=== PATIENT | male | born 1950 | race Caucasian/White ===

== ENCOUNTER 2016-11-09 11:45 | Emergency (ER) | payer MEDICARE, OTHER ==
[2016-11-09] MEDS ORDERED: DIPH,PERTUS(ACELL)TETVAC-LF 0.5 ML VIAL IM ONE (11:46)
[2016-11-09] MEDS ORDERED: fentaNYL (PF) 50 MCG/ML 5 ML AMP IVP STA (12:08)
[2016-11-09] MEDS: fentaNYL (PF) 50 MCG/ML 2 ML AMP IVP STA ×2 (12:12→13:49)
[2016-11-09 12:17] LABS: Glucose,Whole Blood 107 mg/dL (75-99)
--- NOTE | 2016-11-09 12:17 | XR ---
EXAMINATION TYPE: XR Femur RT 1 View DATE OF EXAM: 11/09/2016 CLINICAL HISTORY: Pain TECHNIQUE: One view submitted COMPARISON: None FINDINGS: Exam limited by overlying artifact. There is displaced proximal femoral fracture with comm inuted fragments. Mild diffuse osteopenia. IMPRESSION: 1. Displaced comminuted proximal femoral fracture.
--- NOTE | 2016-11-09 12:19 | XR ---
EXAMINATION TYPE: XR chest 1V portable DATE OF EXAM: 11/09/2016 HISTORY: Trauma, pain. COMPARISON: 06/11/2014 TECHNIQUE: Single view of the chest is submitted. Underlying backboard limits evaluation. FINDINGS: There is fracture of left rib #2. Suspected deformities of left ribs 4 through 6. Left apical lucency could reflect small pneumothorax. There is mediastinal widening likely related to the patient's supi ne positioning. Lung volumes are diminished. There is lucency traversing the scapular body. Additiona l fractures difficult to exclude this region. IMPRESSION: 1. Recommend CT of the chest for possible small left pneumothorax with multiple left-sided rib fract ures. See above.
--- NOTE | 2016-11-09 12:19 | XR ---
EXAMINATION TYPE: XR shoulder limited LT DATE OF EXAM: 11/09/2016 COMPARISON: NONE HISTORY: Pain TECHNIQUE: One view submitted FINDINGS: Arthropathy of the AC joint is seen however there is suspicion for a lucency extending thro ugh the lateral margin of the acromium. There also is atypical morphology of the body of the scapula. Assessment of the shoulders limited due to internal rotation. Also suspect slight cortical step-off involving the left second rib laterally. IMPRESSION: 1. Question scapular fracture recommend CT of the left shoulder. 2. Findings consistent with a fracture involving the left lateral second rib.
--- NOTE | 2016-11-09 12:22 | XR ---
EXAMINATION TYPE: XR pelvis AP view DATE OF EXAM: 11/09/2016 COMPARISON: NONE HISTORY: Pain There is a comminuted fracture of the proximal femur and oblique orientation. Diffuse osteopenia note d. Pubic rami appear intact. Hypertrophic change lower lumbar spine. IMPRESSION: 1. Comminuted fracture proximal right femur.
[2016-11-09 12:30] LABS: Basophils % (A) 1 %; CH 31.1; CHCM 33.1; Eosinophils # (A) 0.3 k/uL (0-0.7); Eosinophils % (A) 3 %; HCT 40.4 % (39.0-53.0); HDW 2.15; HGB 13.4 gm/dL (13.0-17.5); Luc # (Auto) 0.16; Luc % (Auto) 2; Lymphocytes # (A) 1.2 k/uL (1.0-4.8); Lymphocytes % (A) 14 %; MCH 31.3 pg (25.0-35.0); MCHC 33.2 g/dL (31.0-37.0); MCV 94.4 fL (80.0-100.0); Mean Platelet Volume 6.8; Monocytes # (A) 0.4 k/uL (0-1.0); Monocytes % (A) 5 %; Neutrophils # (A) 6.2 k/uL (1.3-7.7); Neutrophils % (A) 75 %; RBC 4.28 m/uL (4.30-5.90); RDW 12.8 % (11.5-15.5); WBC 8.2 k/uL (3.8-10.6); WBC (Perox) 8.24
[2016-11-09 12:45] LABS: ALT 54 U/L (21-72); AST 43 U/L (17-59); Alcohol <10 mg/dL; Alkaline Phosphatase 69 U/L (38-126); Anion Gap 6 mmol/L; Blood Urea Nitrogen 16 mg/dL (9-20); Calcium 9.2 mg/dL (8.4-10.2); Carbon Dioxide 28 mmol/L (22-30); Chloride 105 mmol/L (98-107); Glucose 106 mg/dL (74-99); Non-African American GFR(MDRD) >60 (>60 ml/min/1.73 sqM); Potassium 5.2 mmol/L (3.5-5.1); Sodium 139 mmol/L (137-145); Total Bilirubin 0.3 mg/dL (0.2-1.3); Total Protein 6.3 g/dL (6.3-8.2)
[2016-11-09] MEDS ORDERED: RX INFO: IV CONTRAST WAS GIVEN 1 EACH MISC MISCELLANE PRN (12:48)
[2016-11-09 12:55] LABS: Prothrombin Time 9.9 sec (9.0-12.0)
--- NOTE | 2016-11-09 13:12 | CT ---
EXAMINATION TYPE: CT brain sarita solano DATE OF EXAM: 11/09/2016 COMPARISON: NONE HISTORY: Patient poor historian. Patient fell off of horse today. Patient has multiple facial abras ions. CT DLP: 1931 mGycm. Automated Exposure Control for Dose Reduction was Utilized. TECHNIQUE: CT scan of the head and cervical spine are performed without contrast. FINDINGS: There is a type I rotatory atlantoaxial subluxation with rightward rotation of C1 with respect to C2 with no widening of the atlantodental interval. The anterior arch of C1 approximates the dens. There is a maintained articulation of C1 with the occiput bilaterally. The lateral masses of C1 do not exte nd over the lateral masses of C2 on coronal image. Facets maintain normal alignment. Vertebral body also maintains alignment other than the afferent men tioned rotatory subluxation. No significant prevertebral soft tissue swelling is noted. Multilevel de generative changes of the cervical spine are most pronounced at C4-C5. There is no acute intracranial hemorrhage, mass effect, or midline shift identified. The ventricles and sulci are within normal li mits in size. The globes are intact and the visualized sinuses are clear. There is a left parietal s calp hematoma measuring approximately 3.7 cm in length and 4.9 mm in thickness. No intracranial hemor rhage is seen deep to this. No calvarial fracture is associated. IMPRESSION: 1. Type I rotatory atlantoaxial subluxation with no widening of the atlantodental interval. No acute fracture. C1 maintains normal alignment with the occiput. 2. No acute intracranial hemorrhage, mass effect, or midline shift is seen. 3. Left parietal scalp hematoma measuring up to 4.9 cm in greatest thickness. 4. Multilevel degenerative disc disease of the cervical spine. Findings were relayed to the ordering ER physician by Dr. Humphrey on 11/09/2016 at 1310.
[2016-11-09 13:45] LABS: Partial Thromboplastin Time 21.5 sec (22.0-30.0)
--- NOTE | 2016-11-09 14:25 | CT ---
EXAMINATION TYPE: CT ChestAbdPelvis w con DATE OF EXAM: 11/09/2016 COMPARISON: CT brain C-spine dated 11/09/2016. HISTORY: Patient poor historian. Patient fell off of horse today. CT DLP: 1362 mGycm. Automated Exposure Control for Dose Reduction was Utilized. CONTRAST: CT scan of the thorax, abdomen and pelvis is performed with IV Contrast, patient injected with 100 mL of Omnipaque 300. FINDINGS: LUNGS: The lungs demonstrate minimal bibasilar subsegmental atelectasis, there is no concerning paren chymal mass or nodule identified. There is no pleural effusion or pneumothorax seen. The tracheobr onchial tree is patent. No pulmonary contusion is seen. MEDIASTINUM: There are no greater than 1 cm hilar or mediastinal lymph nodes. No pericardial effusi on is seen. No evidence of pulmonary embolus. Ascending aorta is prominent in size measuring 3.8 cm but does not fit criteria for aneurysmal dilatation. No evidence of dissection. LIVER/GB: No significant abnormality is appreciated. PANCREAS: No significant abnormality is seen. SPLEEN: No significant abnormality is seen. ADRENALS: No significant abnormality is seen. 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 Small p robable cortical cyst is also seen. Renal laceration is seen of the lateral right pelvic kidney measu ring 2.2 cm involving the cortex and medulla. Small amount of perinephric fat stranding is seen. Invo lvement of the collecting system cannot be identified on this examination. This is therefore likely a grade 3 injury. BOWEL: No significant abnormality is seen. Small descending duodenal diverticulum is noted. GENITAL ORGANS: No gross abnormality seen. LYMPH NODES: No greater than 1cm abdominal or pelvic lymph nodes are appreciated. OSSEOUS STRUCTURES: There is fracture of the left acromion, which is comminuted and minimally displaced with the most lat eral fracture fragment displaced approximately 1.1 cm laterally. Fracture of the coracoid is also moreno reciated, which appears slightly corticated and could relate to remote injury. There is depression of the posterior humeral head superiorly and inferiorly with increased sclerosis of the posterior media l humeral head, this may relate to osseous contusion and Bankart compression fracture deformity from dislocation relocation injury. Nondisplaced fracture of the fifth, sixth, seventh, eighth, ninth and 10th lateral ribs are seen in o ne location, therefore there is no concern for flail chest. No adjacent pulmonary contusion or pneumo thorax is identified. Nondisplaced fracture of the lateral margin of the rib 2 is also seen. There is comminuted fracture of the intertrochanteric right femur with impaction and rotatory compone nt with the medullary cavity of the proximal anterior femur rotated as a medullary cavity faces media lly. This involves the lesser trochanter. Impacted left humeral head metaphyseal fracture is appreciated on series 5 image 45. There appears to be old fracture deformity of the scapular body with callus formation. Compression deformities of T11 and T12 are seen with approximately 50% vertebral body height loss of T12 and 40% of T11. No evidence of retropulsion. Midthoracic vertebral body hemangioma seen as well a s degenerative changes of the thoracolumbar and lumbosacral spine. IMPRESSION: 1. Numerous osseous fractures including the left acromion, humerus, coracoid, scapula, fifth through 10th and second left ribs, right femur and compression deformities of T11 and T12 without retropulsio n. 2. 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 Findings were discussed with the ordering ER physician at 1420 p.m. on 11/09/[address] Humphrey.
--- NOTE | 2016-11-09 14:57 | ED ---
General Adult HPI - General Chief complaint: Trauma Stated complaint: Fall from Horse Time Seen by Provider: 11/09/16 11:46 Source: patient, family, EMS, RN notes reviewed Mode of arrival: EMS Limitations: physical limitation - History of Present Illness Initial comments: 66 yo male with past medical history of ALS presents status post fall. Patient was riding a horse, fell to the concrete striking the left side of his head, left shoulder, and complaining of right leg pain. Patient does report some mild pain in the left shoulder but his main pain complaint is left hip. Patient was not ambulatory on scene. Pain in the hip is 10 out of 10 severe pain. There is obvious deformity noted to the left lower extremity. Patient is evaluated as a level II trauma activation. There was no loss of consciousness. Patient is not on blood thinners. - Related Data Home Medications Medication Instructions Recorded Confirmed Cholecalciferol [Vitamin D3] 5,000 unit PO DAILY 06/11/14 11/09/16 Methylsulfonylmethane [MSM] 1,000 mg PO DAILY 06/11/14 11/09/16 Nortriptyline HCl [Pamelor] 75 mg PO HS 06/11/14 11/09/16 Omeprazole [PriLOSEC] 20 mg PO AC-BRKFST 06/11/14 11/09/16 Polyethylene Glycol 3350 [Miralax] 17 gm PO BID 06/11/14 11/09/16 Riluzole 50 mg PO BID 06/11/14 11/09/16 buPROPion HCL [Wellbutrin SR] 200 mg PO BID 06/11/14 11/09/16 Gabapentin [Neurontin] 600 mg PO TID 03/03/16 11/09/16 Allergies Allergy/AdvReac Type Severity Reaction Status Date / Time No Known Allergies Allergy Verified 03/03/16 17:29 Review of Systems ROS Statement: Those systems with pertinent positive or pertinent negative responses have been documented in the HPI. ROS Other: All systems not noted in ROS Statement are negative. Past Medical History Past Medical History: Neurologic Disorder, Pneumonia, Sleep Apnea/CPAP/BIPAP Additional Past Medical History / Comment(s): ALS History of Any Multi-Drug Resistant Organisms: None Reported Additional Past Surgical History / Comment(s): TOE SURGERY RIGHT. intestinal growth removed/colonoscopy Past Anesthesia/Blood Transfusion Reactions: No Reported Reaction Past Psychological History: Depression Smoking Status: Former smoker Past Alcohol Use History: None Reported Past Drug Use History: None Reported - Past Family History Brother(s) Family Medical History: Prostate Disorder Additional Family Medical History / Comment(s): prostate cancer General Exam Limitations: physical limitation General appearance: alert, in distress Head exam: Present: normocephalic, other ((For contusion and abrasion) Eye exam: Present: normal appearance, PERRL, EOMI ENT exam: Present: normal exam Neck exam: Present: normal inspection, tenderness (Midline tenderness to palpation, no step-off) Respiratory exam: Present: normal lung sounds bilaterally. Absent: respiratory distress, wheezes Cardiovascular Exam: Present: regular rate, normal rhythm GI/Abdominal exam: Present: soft. Absent: distended, tenderness, guarding Extremities exam: Present: normal capillary refill, pedal edema, other (I was to forward his right lower extremity, externally rotated and shortened, PT pulse is 2+) Back exam: Present: normal inspection, full ROM. Absent: tenderness Neurological exam: Present: alert, oriented X3, CN II-XII intact. Absent: motor sensory deficit Psychiatric exam: Present: normal affect, normal mood Skin exam: Present: warm, dry. Absent: cyanosis, diaphoretic Course - Reevaluation(s) Reevaluation #1: 11/09/16 14:53 Patient is reevaluated, vital signs are stable, findings are discussed with both the patient and his family. He will be transferred, currently awaiting transfer to [facility]. EKG Findings - EKG Comments: EKG Findings:: EKG shows normal sinus rhythm, ventricular rate 91, purulent 170 , QRS duration 108, QTC 477, no signs of ischemia Medical Decision Making - Medical Decision Making 66 yo male presents status post fall from a horse. On initial examination patient does have midline C-spine tenderness, does have abrasion and pain over the left shoulder, there is obvious deformity of the right lower extremity with external rotation, distal pulses are intact. Patient's neurological examination is nonfocal. He is moving all extremities. Patient is evaluated as a level II trauma activation. Case is discussed with trauma surgery on-call. Laboratory studies : A CBC, CMP, and troponin are unremarkable. Urinalysis is pending at the time of this dictation. Chest x-ray is negative for pneumo or hemothorax, there is a left scapular fracture and left second rib fracture, pelvis x-ray does show a displaced proximal femur fracture which is consistent on femur x-ray. CT of the head is negative for intracranial hemorrhage, CT of the cervical spine does show C1 on C2 subluxation this is type I. These findings were discussed with radiology. They do not believe there is any ligamentous injury, and patient's neurologic exam is nonfocal. C1 on C2 subluxation, fractures, right proximal femur fracture, left humerus fracture, T11-T12 compression fracture, kidney laceration Given the scapular second rib fracture, CT chest and pelvis is ordered, this has significant findings including left fifth through 10th rib as well as second rib. No hemo-or pneumothorax. There is a right femoral IT fracture, T11 and T12 compression fracture, there is a grade 3 kidney laceration on a pelvic kidney. These findings are discussed with the transfer facility. They do accept the transfer. Receiving doctor is Dr. Pack. Diagnosis: Polytrauma, C1 on C2 subluxation type I, multiple left rib fractures , T11-T12 compression fracture, proximal right femur fracture, left humerus fracture, grade 3 kidney laceration on pelvic kidney - Lab Data Result diagrams: 11/09/16 12:05 11/09/16 12:05 Lab Results 11/09/16 11/09/16 11/09/16 Range/Units 12:05 12:05 12:05 WBC (3.8-10.6) k/uL RBC (4.30-5.90) m/uL Hgb (13.0-17.5) gm/dL Hct (39.0-53.0) % MCV (80.0-100.0) fL MCH (25.0-35.0) pg MCHC (31.0-37.0) g/dL RDW (11.5-15.5) % Plt Count (150-450) k/uL Neutrophils % % Lymphocytes % % Monocytes % % Eosinophils % % Basophils % % Neutrophils # (1.3-7.7) k/uL Lymphocytes # (1.0-4.8) k/uL Monocytes # (0-1.0) k/uL Eosinophils # (0-0.7) k/uL Basophils # (0-0.2) k/uL PT (9.0-12.0) sec INR (<1.2) APTT (22.0-30.0) sec Sodium 139 (137-145) mmol/L Potassium 5.2 H (3.5-5.1) mmol/L Chloride 105 (98-107) mmol/L Carbon Dioxide 28 (22-30) mmol/L Anion Gap 6 mmol/L BUN 16 (9-20) mg/dL Creatinine 0.95 (0.66-1.25) mg/dL Est GFR (MDRD) Af Amer >60 (>60 ml/min/1.73 sqM) Est GFR (MDRD) Non-Af >60 (>60 ml/min/1.73 sqM) Glucose 106 H (74-99) mg/dL POC Glucose (mg/dL) 107 H (75-99) mg/dL POC Glu Rod Hanger ID Ann Lu Plasma Lactic Acid Anli (0.7-2.0) mmol/L Calcium 9.2 (8.4-10.2) mg/dL Total Bilirubin 0.3 (0.2-1.3) mg/dL AST 43 (17-59) U/L ALT 54 (21-72) U/L Alkaline Phosphatase 69 (38-126) U/L Troponin I (0.000-0.034) ng/mL Total Protein 6.3 (6.3-8.2) g/dL Albumin 3.9 (3.5-5.0) g/dL Serum Alcohol <10 mg/dL Blood Type O Positive Blood Type Recheck No Antibody Screen NEGATIVE Spec Expiration Date 11/12/2016230411/09/16 11/09/16 11/09/16 Range/Units 12:05 12:05 12:05 WBC 8.2 (3.8-10.6) k/uL RBC 4.28 L (4.30-5.90) m/uL Hgb 13.4 (13.0-17.5) gm/dL Hct 40.4 (39.0-53.0) % MCV 94.4 (80.0-100.0) fL MCH 31.3 (25.0-35.0) pg MCHC 33.2 (31.0-37.0) g/dL RDW 12.8 (11.5-15.5) % Plt Count 275 (150-450) k/uL Neutrophils % 75 % Lymphocytes % 14 % Monocytes % 5 % Eosinophils % 3 % Basophils % 1 % Neutrophils # 6.2 (1.3-7.7) k/uL Lymphocytes # 1.2 (1.0-4.8) k/uL Monocytes # 0.4 (0-1.0) k/uL Eosinophils # 0.3 (0-0.7) k/uL Basophils # 0.0 (0-0.2) k/uL PT 9.9 (9.0-12.0) sec INR 1.0 (<1.2) APTT 21.5 L (22.0-30.0) sec Sodium (137-145) mmol/L Potassium (3.5-5.1) mmol/L Chloride (98-107) mmol/L Carbon Dioxide (22-30) mmol/L Anion Gap mmol/L BUN (9-20) mg/dL Creatinine (0.66-1.25) mg/dL Est GFR (MDRD) Af Amer (>60 ml/min/1.73 sqM) Est GFR (MDRD) Non-Af (>60 ml/min/1.73 sqM) Glucose (74-99) mg/dL POC Glucose (mg/dL) (75-99) mg/dL POC Glu Rod Hanger ID Plasma Lactic Acid Anil (0.7-2.0) mmol/L Calcium (8.4-10.2) mg/dL Total Bilirubin (0.2-1.3) mg/dL AST (17-59) U/L ALT (21-72) U/L Alkaline Phosphatase (38-126) U/L Troponin I <0.012 (0.000-0.034) ng/mL Total Protein (6.3-8.2) g/dL Albumin (3.5-5.0) g/dL Serum Alcohol mg/dL Blood Type Blood Type Recheck Antibody Screen Spec Expiration Date 11/09/16 Range/Units 12:05 WBC (3.8-10.6) k/uL RBC (4.30-5.90) m/uL Hgb (13.0-17.5) gm/dL Hct (39.0-53.0) % MCV (80.0-100.0) fL MCH (25.0-35.0) pg MCHC (31.0-37.0) g/dL RDW (11.5-15.5) % Plt Count (150-450) k/uL Neutrophils % % Lymphocytes % % Monocytes % % Eosinophils % % Basophils % % Neutrophils # (1.3-7.7) k/uL Lymphocytes # (1.0-4.8) k/uL Monocytes # (0-1.0) k/uL Eosinophils # (0-0.7) k/uL Basophils # (0-0.2) k/uL PT (9.0-12.0) sec INR (<1.2) APTT (22.0-30.0) sec Sodium (137-145) mmol/L Potassium (3.5-5.1) mmol/L Chloride (98-107) mmol/L Carbon Dioxide (22-30) mmol/L Anion Gap mmol/L BUN (9-20) mg/dL Creatinine (0.66-1.25) mg/dL Est GFR (MDRD) Af Amer (>60 ml/min/1.73 sqM) Est GFR (MDRD) Non-Af (>60 ml/min/1.73 sqM) Glucose (74-99) mg/dL POC Glucose (mg/dL) (75-99) mg/dL POC Glu Rod Hanger ID Plasma Lactic Acid Anil 1.3 (0.7-2.0) mmol/L Calcium (8.4-10.2) mg/dL Total Bilirubin (0.2-1.3) mg/dL AST (17-59) U/L ALT (21-72) U/L Alkaline Phosphatase (38-126) U/L Troponin I (0.000-0.034) ng/mL Total Protein (6.3-8.2) g/dL Albumin (3.5-5.0) g/dL Serum Alcohol mg/dL Blood Type Blood Type Recheck Antibody Screen Spec Expiration Date Critical Care Time Critical Care Time: Yes Total Critical Care Time: 95 Disposition Clinical Impression: Closed subluxation of cervical spine Disposition: OTHER INSTITUTION NOT DEFINED Condition: Serious Referrals: Brice Hilliard MD [Primary Care Provider] - 1-2 days - Out of Hospital Transfer - Req. Specs Out of Hospital Transfer - Requested Specifics: Surgical ICU (Transferred to [facility])
== END 2016-11-09 15:30 | disposition other institution (70) ==
LOC: EC 11:45
DX: S13.120A Subluxation of C1/C2 cervical vertebrae, initial encounter (principal); S22.32XA Fracture of one rib, left side, initial encounter for closed fracture; S72.91XA Unspecified fracture of right femur, initial encounter for closed fracture; S42.102A Fracture of unspecified part of scapula, left shoulder, initial encounter for closed fracture; S72.001A Fracture of unspecified part of neck of right femur, initial encounter for closed fracture; S42.302A Unspecified fracture of shaft of humerus, left arm, initial encounter for closed fracture; S22.089A Unspecified fracture of T11-T12 vertebra, initial encounter for closed fracture; S37.039A Laceration of unspecified kidney, unspecified degree, initial encounter; F32.9 Major depressive disorder, single episode, unspecified; Z23 Encounter for immunization; Z87.891 Personal history of nicotine dependence; Z79.899 Other long term (current) drug therapy; V80.010A Animal-rider injured by fall from or being thrown from horse in noncollision accident, initial encounter
CPT/HCPCS: 90471 ×2; 96374 ×2; 99291 ×2; 99292 ×2; 36415; 93005; 86900; 86901; 80053; 83605; 84484; 85025; 85610; 85730; 86850; 80320; 71010; 72170; 73551; 73020; 72125; 70450; 71260; 74177; 90715; J3010; Q9967

== ENCOUNTER → 2017-04-13 | Outpatient (CLI) | payer MEDICARE, OTHER ==
--- NOTE | 2017-04-13 21:54 | US ---
EXAMINATION TYPE: US duplex aorta DATE OF EXAM: 04/13/2017 COMPARISON: CT chest abdomen and pelvis November 09, 2016 CLINICAL HISTORY: Z13.6 screening for cardiovascular disorders. EXAM MEASUREMENTS: Abdominal Aorta: Proximal: 1.9 x 2.2 cm Mid: 2.1 x 1.9 cm Distal: 1.7 x 1.6 cm Bifurcation: rt. 1.4 x 1.2 cm lt 1.4 x 1.2 cm normal caliber aorta Atherosclerotic changes seen in the visualized aorta through the bifurcation without aneurysmal yo e identified. IMPRESSION: No aneurysm of abdominal aorta is seen. Findings correlate with comparison CT.
== END | disposition home or self-care (01) ==
LOC: RADUSWWP 15:56
PROVIDERS: ATTEND Physician Assistant
DX: Z13.6 Encounter for screening for cardiovascular disorders (principal)
CPT/HCPCS: 93979

== ENCOUNTER 2017-12-19 13:07 | Observation (INO) | payer MEDICARE, OTHER ==
--- NOTE | 2017-12-19 13:49 | ED ---
Lower Extremity Injury HPI - General Chief Complaint: Extremity Injury, Lower Stated Complaint: swollen knee Time Seen by Provider: 12/19/17 13:16 Source: patient, RN notes reviewed Mode of arrival: wheelchair Limitations: no limitations - History of Present Illness Initial Comments: This is a 67-year-old male presents emergency Department chief complaint of left leg swelling, left knee swelling. Patient states that this started last 4- 5 days states that it started after working on some nabila and he was kneeling on his knees. Patient states that he did use kneepads but distal happened. He has had same issue in the right knee and which she was admitted to the hospital for IV antibiotics. Patient saw Dr. Hilliard today who sent him to emergency department for further evaluation. Patient denies any history of DVTs. Patient states that there is minimal discomfort he does have good range of motion. Patient had no known fever or chills. He did admit there is a sore on the left knee superior to lateral aspect - Related Data Home Medications Medication Instructions Recorded Confirmed Cholecalciferol [Vitamin D3] 5,000 unit PO DAILY 06/11/14 11/09/16 Methylsulfonylmethane [MSM] 1,000 mg PO DAILY 06/11/14 11/09/16 Nortriptyline HCl [Pamelor] 75 mg PO HS 06/11/14 11/09/16 Omeprazole [PriLOSEC] 20 mg PO AC-BRKFST 06/11/14 11/09/16 Polyethylene Glycol 3350 [Miralax] 17 gm PO BID 06/11/14 11/09/16 Riluzole 50 mg PO BID 06/11/14 11/09/16 buPROPion HCL [Wellbutrin SR] 200 mg PO BID 06/11/14 11/09/16 Gabapentin [Neurontin] 600 mg PO TID 03/03/16 11/09/16 Allergies Allergy/AdvReac Type Severity Reaction Status Date / Time No Known Allergies Allergy Verified 12/19/17 13:11 Review of Systems ROS Statement: Those systems with pertinent positive or pertinent negative responses have been documented in the HPI. ROS Other: All systems not noted in ROS Statement are negative. Past Medical History Past Medical History: Neurologic Disorder, Pneumonia, Sleep Apnea/CPAP/BIPAP Additional Past Medical History / Comment(s): ALS History of Any Multi-Drug Resistant Organisms: None Reported Past Surgical History: Orthopedic Surgery Additional Past Surgical History / Comment(s): TOE SURGERY RIGHT. intestinal growth removed/colonoscopy Past Anesthesia/Blood Transfusion Reactions: No Reported Reaction Past Psychological History: Depression Smoking Status: Former smoker Past Alcohol Use History: Occasional Past Drug Use History: None Reported - Past Family History Brother(s) Family Medical History: Prostate Disorder Additional Family Medical History / Comment(s): prostate cancer General Exam Limitations: no limitations General appearance: alert, in no apparent distress Respiratory exam: Present: normal lung sounds bilaterally. Absent: respiratory distress, wheezes, rales, rhonchi, stridor Cardiovascular Exam: Present: regular rate, normal rhythm, normal heart sounds. Absent: systolic murmur, diastolic murmur, rubs, gallop, clicks Extremities exam: Present: other (Left knee there is moderate swelling, primarily in the patellar region there is mild erythema mild 1 patient has full range of motion minimal discomfort neurovascular intact there is extensive swelling to the left lower extremity compared to the right. Pulses equal) Skin exam: Present: warm, dry Course Vital Signs 12/19/17 12/19/17 13:08 15:11 Temperature 98.1 F Pulse Rate 97 89 Respiratory 18 18 Rate Blood Pressure 133/79 116/66 O2 Sat by Pulse 94 L 97 Oximetry Medical Decision Making - Lab Data Result diagrams: 12/19/17 13:48 12/19/17 13:48 Lab Results 12/19/17 12/19/17 12/19/17 Range/Units 13:48 13:48 13:48 WBC 7.3 (3.8-10.6) k/uL RBC 4.16 L (4.30-5.90) m/uL Hgb 13.0 (13.0-17.5) gm/dL Hct 39.3 (39.0-53.0) % MCV 94.6 (80.0-100.0) fL MCH 31.3 (25.0-35.0) pg MCHC 33.1 (31.0-37.0) g/dL RDW 12.4 (11.5-15.5) % Plt Count 405 (150-450) k/uL Neutrophils % 70 % Lymphocytes % 19 % Monocytes % 6 % Eosinophils % 2 % Basophils % 1 % Neutrophils # 5.1 (1.3-7.7) k/uL Lymphocytes # 1.4 (1.0-4.8) k/uL Monocytes # 0.5 (0-1.0) k/uL Eosinophils # 0.1 (0-0.7) k/uL Basophils # 0.0 (0-0.2) k/uL PT (9.0-12.0) sec INR (<1.2) APTT (22.0-30.0) sec Sodium 138 (137-145) mmol/L Potassium 4.4 (3.5-5.1) mmol/L Chloride 105 (98-107) mmol/L Carbon Dioxide 25 (22-30) mmol/L Anion Gap 8 mmol/L BUN 17 (9-20) mg/dL Creatinine 0.84 (0.66-1.25) mg/dL Est GFR (CKD-EPI)AfAm >90 (>60 ml/min/1.73 sqM) Est GFR (CKD-EPI)NonAf >90 (>60 ml/min/1.73 sqM) Glucose 104 H (74-99) mg/dL Plasma Lactic Acid Anil 1.6 (0.7-2.0) mmol/L Calcium 9.8 (8.4-10.2) mg/dL Total Bilirubin 0.6 (0.2-1.3) mg/dL AST 31 (17-59) U/L ALT 25 (21-72) U/L Alkaline Phosphatase 73 (38-126) U/L C-Reactive Protein 57.5 H (<10.0) mg/L Total Protein 7.1 (6.3-8.2) g/dL Albumin 4.0 (3.5-5.0) g/dL 12/19/17 Range/Units 13:48 WBC (3.8-10.6) k/uL RBC (4.30-5.90) m/uL Hgb (13.0-17.5) gm/dL Hct (39.0-53.0) % MCV (80.0-100.0) fL MCH (25.0-35.0) pg MCHC (31.0-37.0) g/dL RDW (11.5-15.5) % Plt Count (150-450) k/uL Neutrophils % % Lymphocytes % % Monocytes % % Eosinophils % % Basophils % % Neutrophils # (1.3-7.7) k/uL Lymphocytes # (1.0-4.8) k/uL Monocytes # (0-1.0) k/uL Eosinophils # (0-0.7) k/uL Basophils # (0-0.2) k/uL PT 9.3 (9.0-12.0) sec INR 0.9 (<1.2) APTT 26.2 (22.0-30.0) sec Sodium (137-145) mmol/L Potassium (3.5-5.1) mmol/L Chloride (98-107) mmol/L Carbon Dioxide (22-30) mmol/L Anion Gap mmol/L BUN (9-20) mg/dL Creatinine (0.66-1.25) mg/dL Est GFR (CKD-EPI)AfAm (>60 ml/min/1.73 sqM) Est GFR (CKD-EPI)NonAf (>60 ml/min/1.73 sqM) Glucose (74-99) mg/dL Plasma Lactic Acid Anil (0.7-2.0) mmol/L Calcium (8.4-10.2) mg/dL Total Bilirubin (0.2-1.3) mg/dL AST (17-59) U/L ALT (21-72) U/L Alkaline Phosphatase (38-126) U/L C-Reactive Protein (<10.0) mg/L Total Protein (6.3-8.2) g/dL Albumin (3.5-5.0) g/dL Disposition Clinical Impression: Septic prepatellar bursitis of left knee Disposition: ADMITTED IP TO THIS [facility] Condition: Stable Referrals: Brice Hilliard MD [Primary Care Provider] - 1-2 days
[2017-12-19 13:56] LABS: Basophils % (A) 1 %; Eosinophils # (A) 0.1 k/uL (0-0.7); Eosinophils % (A) 2 %; HCT 39.3 % (39.0-53.0); Lymphocytes # (A) 1.4 k/uL (1.0-4.8); Lymphocytes % (A) 19 %; MCH 31.3 pg (25.0-35.0); MCHC 33.1 g/dL (31.0-37.0); MCV 94.6 fL (80.0-100.0); Mean Platelet Volume 6.7; Monocytes # (A) 0.5 k/uL (0-1.0); Monocytes % (A) 6 %; Neutrophils # (A) 5.1 k/uL (1.3-7.7); Neutrophils % (A) 70 %; Platelet Count 405 k/uL (150-450); RBC 4.16 m/uL (4.30-5.90); RDW 12.4 % (11.5-15.5); WBC 7.3 k/uL (3.8-10.6)
[2017-12-19 14:06] LABS: INR 0.9 (<1.2); Partial Thromboplastin Time 26.2 sec (22.0-30.0); Prothrombin Time 9.3 sec (9.0-12.0)
--- NOTE | 2017-12-19 14:07 | XR ---
Left knee HISTORY: Pain and swelling 3 views of the left knee Bone mineralization and alignment are maintained. There is marginal spurring medial compartment. Join t spaces relatively maintained. Suprapatellar increased density compatible joint effusion. Soft tissu e swelling present anteriorly especially over the patellar tendon insertion. IMPRESSION: Osteoarthritis. Correlate for possible prepatellar bursitis, correlate to exclude infecti on
[2017-12-19 14:17] LABS: ALT 25 U/L (21-72); AST 31 U/L (17-59); Alkaline Phosphatase 73 U/L (38-126); Anion Gap 8 mmol/L; Blood Urea Nitrogen 17 mg/dL (9-20); C Reactive Protein 57.5 mg/L (<10.0); Calcium 9.8 mg/dL (8.4-10.2); Carbon Dioxide 25 mmol/L (22-30); Chloride 105 mmol/L (98-107); Glucose 104 mg/dL (74-99); Potassium 4.4 mmol/L (3.5-5.1); Sodium 138 mmol/L (137-145); Total Bilirubin 0.6 mg/dL (0.2-1.3); Total Protein 7.1 g/dL (6.3-8.2)
--- NOTE | 2017-12-19 15:22 | US ---
EXAMINATION TYPE: US venous doppler duplex LE LT DATE OF EXAM: 12/19/2017 3:11 PM COMPARISON: CLINICAL HISTORY: Pain. Left leg redness anterior leg superior to knee. Pt states he has been kneeli ng for 3-4 days laying floor. No hx of blood clots. Not on blood thinners. SIDE PERFORMED: Left TECHNIQUE: The lower extremity deep venous system is examined utilizing real time linear array sonog uriel with graded compression, doppler sonography and color-flow sonography. VESSELS IMAGED: External Iliac Vein (EIV) Common Femoral Vein Deep Femoral Vein Greater Saphenous Vein * Femoral Vein Popliteal Vein Small Saphenous Vein * Proximal Calf Veins (* superficial vessels) There is normal flow, compressibility, vascular waveforms. ` Left Leg: Negative for DVT. Left groin, lymph node appearing lesion - 2.9 x 1.8 x 0.8 cm. Area of redness scanned, superficial edema seen. There are edema channels at the site of patient's symptomatology IMPRESSION: No evident deep venous thrombosis at or above the left knee. Correlate for cellulitis, f indings could represent phlegmon at the area of symptomatology. Follow-up as indicated.
[2017-12-19] MEDS ORDERED: PIPERACILLIN-TAZOBACTAM 3.375 GM in DEXTROSE/WATER 1 50ML.BAG IVPB STA (15:29)
[2017-12-19] MEDS ORDERED: VANCOMYCIN IV PER PHARMACY 1 EACH MISC MISCELLANE PRN (15:29)
[2017-12-19] MEDS ORDERED: VANCOMYCIN 1,250 MG in SODIUM CHLORIDE 0.9% 250 ML IVPB STA (15:35)
[2017-12-19] MEDS ORDERED: HYDROcodone/APAP 5-325MG 1 EACH TAB PO PRN (15:39)
[2017-12-19 17:07] VITALS: BMI 22.6
[2017-12-19] MEDS ORDERED: KETOROLAC 30 MG/ML 1 ML VIAL IVP STA (18:02)
[2017-12-19] MEDS ORDERED: ENOXAPARIN 40 MG/0.4 ML SYRINGE SQ SCH ×2 (21:00→22:00)
[2017-12-19] MEDS: VANCOMYCIN 1,250 MG in SODIUM CHLORIDE 0.9% 250 ML IVPB SCH (21:20)
[2017-12-19] MEDS ORDERED: MELATONIN 3 MG TABLET PO PRN (21:31)
[2017-12-19] MEDS ORDERED: LACTULOSE 20 GM/30 ML CUP PO PRN (21:31)
[2017-12-19] MEDS ORDERED: MAGNESIUM HYDROXIDE 2,400 MG/10 ML CUP PO PRN (21:31)
[2017-12-19] MEDS ORDERED: CALCIUM CARBONATE 500 MG CHEWABLE PO PRN (21:31)
[2017-12-19] MEDS ORDERED: ALPRAZolam 0.25 MG TAB PO PRN (21:31)
[2017-12-19] MEDS ORDERED: ONDANSETRON 4 MG/2 ML VIAL IVP PRN (21:31)
[2017-12-19] MEDS ORDERED: ACETAMINOPHEN TAB 325 MG TAB PO PRN (21:31)
[2017-12-19] MEDS: buPROPion 100 MG TAB PO SCH (21:55)
[2017-12-19] MEDS: NORTRIPTYLINE 25 MG CAP PO SCH (21:55)
[2017-12-19] MEDS: GABAPENTIN 300 MG CAP PO SCH (21:55)
[2017-12-19] MEDS: POLYETHYLENE GLYCOL 3350 17 GM POWD.PACK PO SCH ×2 (21:56→22:02)
[2017-12-19] MEDS: RILUZOLE 50 MG PO SCH (22:03)
--- NOTE | 2017-12-19 22:12 | HP ---
HISTORY AND PHYSICAL DATE OF ADMISSION: 12/19/2017 DATE OF SERVICE: 12/19/2017 PRESENTING COMPLAINT: Swelling below the left knee. HISTORY OF PRESENTING COMPLAINT: This is a very pleasant 67-year-old patient who follows with Dr. Hilliard. Chronic stable medical conditions include obstructive sleep apnea, uses a CPAP machine, amyotrophic lateral sclerosis which is stable, depression and chronic constipation. He also takes Aricept for forgetfulness. Patient was fixing his floor in the house and bought a new kneepad which was very comfortable, but he noticed that there was pain and swelling that developed below the left knee. He decided to go down to his family doctor. Apparently he has had a similar one on the other side. It was decided to send him to the ER. Patient denies any fever or chills, and surprisingly there is not much tenderness. Admitted for the same. Orthopedics was consulted. REVIEW OF SYSTEMS: CONSTITUTIONAL: None. HEENT: None. RESPIRATORY: None. CARDIOVASCULAR: None. GASTROINTESTINAL: None. GENITOURINARY: None. MUSCULOSKELETAL: As above and some arthritic pain in joints. DERMATOLOGICAL: None. HEMATOLOGICAL: None. LYMPHATICS: None. PSYCHIATRY: Depression, forgetful. NEUROLOGICAL: None. PAST MEDICAL HISTORY: 1. Obstructive sleep apnea. 2. Amyotrophic lateral sclerosis. 3. Depression. 4. Constipation. 5. Forgetfulness. PAST SURGICAL HISTORY: 1. Right toe surgery. 2. Intestinal growth removed. 3. Traumatic injury with fall off of a horse; has lillie in the right leg. SOCIAL HISTORY: Does not smoke. Did smoke in the past. Alcohol occasionally. . FAMILY HISTORY: Prostate cancer. HOME MEDICATIONS: 1. Wellbutrin XR 200 mg b.i.d. 2. Riluzole 50 mg b.i.d. 3. MiraLAX 17 grams p.o. b.i.d. 4. Prilosec 20 mg with breakfast. 5. Pamelor 75 mg at bedtime. 6. [place] 1 tablet q.4 p.r.n. 7. Neurontin 600 mg t.i.d. 8. Aricept 5 mg p.o. daily. 9. Colace 100 mg p.o. daily p.r.n. 10.Vitamin D3 5000 units p.o. daily. ALLERGIES: NONE. PHYSICAL EXAMINATION: VITAL SIGNS ON PRESENTATION: Temperature 98.1, pulse 97, respiration 18, blood pressure 133/79, pulse ox 94% on room air. GENERAL APPEARANCE: Thin build. Lying in bed. Awake. EYES: Pupils equal. Conjunctivae normal. HEENT: External appearance of nose and ears normal. Oral cavity normal. NECK: JVD not raised. Mass not palpable. RESPIRATORY: Effort normal. LUNGS: Fair air entry. CARDIOVASCULAR: First and second sounds normal. No edema. ABDOMEN: Soft, non-tender. Liver and spleen not palpable. LYMPHATIC: No lymph node palpable in neck or axillae. PSYCHIATRY: Alert and oriented x3. Mood and affect normal. NEUROLOGICAL: Pupils equal. Cranial nerves grossly intact. Power and sensation grossly intact. MUSCULOSKELETAL: Evidence of severe osteoarthritis, especially in the hands, knee and the left extremity. There is swelling below the left knee, minimally tender; very slightly elevated local temperature. INVESTIGATIONS: White count 7.3, potassium 4.4. ASSESSMENT: 1. Acute prepatellar bursitis on the left leg from patient working on the floor. There are no signs of sepsis, with the patient being afebrile with normal white count. 2. Obstructive sleep apnea. Uses a CPAP machine. 3. Amyotrophic lateral sclerosis, which is stable. 4. Depression not otherwise specified. 5. Chronic constipation, idiopathic. 6. Mild cognitive impairment, probably from early-onset Alzheimer's dementia. PLAN: Home medications are resumed. The patient is on vancomycin and Zosyn, started in the ER. Orthopedics was consulted. Also patient is on IV Toradol as an anti-inflammatory. Will order some warm compresses. It does not appear to be too angry. Maybe we can use conservative management. Will see what Orthopedics opines. Care was discussed with the patient. MMODL / IJN: [id number] /
[2017-12-20] MEDS: KETOROLAC 30 MG/ML 1 ML VIAL IVP SCH ×4 (00:23→18:18)
[2017-12-20] MEDS: PIPERACILLIN-TAZOBACTAM 3.375 GM in DEXTROSE/WATER 1 50ML.BAG IVPB SCH ×3 (00:24→15:19)
[2017-12-20] MEDS: PANTOPRAZOLE 40 MG TABLET PO SCH (07:38)
[2017-12-20] MEDS: GABAPENTIN 300 MG CAP PO SCH ×3 (07:38→20:23)
[2017-12-20] MEDS: ENOXAPARIN 40 MG/0.4 ML SYRINGE SQ SCH (07:38)
[2017-12-20] MEDS: DONEPEZIL 5 MG TAB PO SCH (07:38)
[2017-12-20] MEDS: POLYETHYLENE GLYCOL 3350 17 GM POWD.PACK PO SCH ×2 (07:38→20:22)
[2017-12-20] MEDS: VANCOMYCIN 1,250 MG in SODIUM CHLORIDE 0.9% 250 ML IVPB SCH ×2 (07:38→20:21)
[2017-12-20] MEDS: buPROPion 100 MG TAB PO SCH ×2 (07:38→20:23)
[2017-12-20] MEDS: RILUZOLE 50 MG PO SCH ×2 (07:39→20:23)
--- NOTE | 2017-12-20 08:40 | P.CNOR ---
History of Present Illness - [facility] Consult date: 12/20/17 Consult reason: other (Bursitis left leg.) History of present illness: This is a 67-year-old male admitted to [facility] on 2017 with redness and swelling to his left leg. 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 He states that he has had similar issues in the past with the other lower leg. He reports no fever or chills. He states that he has no pain in the knee. He does complain of slight pain down the lateral aspect of the lower leg. We're consulted for orthopedic evaluation. He is currently on IV vancomycin and Zosyn. I also have him on Toradol IV every 6. The patient states that he is improving since his admission. Past Medical History Past Medical History: Neurologic Disorder, Pneumonia, Sleep Apnea/CPAP/BIPAP Additional Past Medical History / Comment(s): ALS History of Any Multi-Drug Resistant Organisms: None Reported Past Surgical History: Orthopedic Surgery Additional Past Surgical History / Comment(s): TOE SURGERY RIGHT. intestinal growth removed/colonoscopy. traumatic injury fell off horse, has lillie rt leg. Past Anesthesia/Blood Transfusion Reactions: No Reported Reaction Past Psychological History: Depression Smoking Status: Former smoker Past Alcohol Use History: Occasional Past Drug Use History: None Reported - Past Family History Brother(s) Family Medical History: Prostate Disorder Additional Family Medical History / Comment(s): prostate cancer Medications and Allergies Home Medications Medication Instructions Recorded Confirmed Type Cholecalciferol [Vitamin D3] 5,000 unit PO DAILY 06/11/14 12/19/17 History Omeprazole [PriLOSEC] 20 mg PO AC-BRKFST 06/11/14 12/19/17 History Polyethylene Glycol 3350 [Miralax] 17 gm PO BID 06/11/14 12/19/17 History Riluzole 50 mg PO BID 06/11/14 12/19/17 History buPROPion HCL [Wellbutrin SR] 200 mg PO BID 06/11/14 12/19/17 History Gabapentin [Neurontin] 600 mg PO TID 03/03/16 12/19/17 History Docusate [Colace] 100 mg PO DAILY PRN 12/19/17 12/19/17 History Donepezil HCl [Aricept] 5 mg PO DAILY 12/19/17 12/19/17 History Hydrocodone/Acetaminophen [[place] 1 tab PO Q4HR PRN 12/19/17 12/19/17 History 5-325] Nortriptyline HCl [Pamelor] 75 mg PO HS 12/19/17 12/19/17 History Allergies Allergy/AdvReac Type Severity Reaction Status Date / Time No Known Allergies Allergy Verified 12/19/17 15:42 Physical Examination This is a pleasant 67-year-old male in no acute distress. He is alert and oriented 3. Exam of the lower extremities reveals swelling with minimal erythema to the anterior aspect of the proximal lower leg. There is mild increased warmth to the area. There is some fluctuance noted to the area. He has full flexion of the knee in full extension. There is minimal pain on palpation to the knee or to the bursa. He has full foot and ankle motion without difficulty or pain. Neurovascular status to the lower extremity is intact. Results X-rays of the left knee revealed no bony abnormality. No fractures are noted. Minimal arthritic changes. Venous Doppler is negative for DVT. - Labs Labs: Abnormal Lab Results - Last 24 Hours (Table) 12/19/17 12/19/17 Range/Units 13:48 13:48 RBC 4.16 L (4.30-5.90) m/uL Glucose 104 H (74-99) mg/dL C-Reactive Protein 57.5 H (<10.0) mg/L H & H 12/19/17 Range/Units 13:48 Hgb 13.0 (13.0-17.5) gm/dL Hct 39.3 (39.0-53.0) % Coagulation 12/19/17 Range/Units 13:48 INR 0.9 (<1.2) Result Diagrams: 12/19/17 13:48 12/19/17 13:48 Assessment and Plan (1) Bursitis of left knee Current Visit: Yes Status: Acute Code(s): M70.52 - OTHER BURSITIS OF KNEE, LEFT KNEE SNOMED Code(s): 8562783136267842 (2) Cellulitis of left leg Current Visit: Yes Status: Acute Code(s): L03.116 - CELLULITIS OF LEFT LOWER LIMB SNOMED Code(s): 343892282 Plan: The clinical findings are discussed with the patient. He is improving significantly since admission. We will continue with the IV antibiotics per internal medicine and moist heat to the leg. I will also order a knee immobilizer. We will reevaluate tomorrow. Hoping discharged to home tomorrow on oral antibiotics.
[2017-12-20] MEDS: NORTRIPTYLINE 25 MG CAP PO SCH (20:22)
--- NOTE | 2017-12-20 23:52 | PN ---
PROGRESS NOTE DATE OF SERVICE: 12/20/2017 PRESENTING COMPLAINT: Left below-knee swelling. INTERVAL HISTORY: Patient was admitted with left prepatellar bursitis. Pain and swelling are getting better on IV antibiotics and anti-inflammatory. Lying in bed. No fever. No chills. REVIEW OF SYSTEMS: Done for constitutional, cardiovascular, GI, pulmonary; relevant findings as above. CURRENT MEDICATIONS: Reviewed. They include IV Zosyn and vancomycin. PHYSICAL EXAMINATION: Afebrile. Pulse 73, respiration 20, blood pressure 105/66, pulse ox 93% on room air. GENERAL APPEARANCE: Sitting up. Comfortable. EYES: Pupils equal. Conjunctivae normal. HEENT: External appearance of nose and ears normal. Oral cavity normal. NECK: JVD not raised. Mass not palpable. RESPIRATORY: Effort normal. Lungs are clear. CARDIOVASCULAR: First and second sounds normal. No edema. ABDOMEN: Soft, non-tender. Liver and spleen not palpable. PSYCHIATRY: Alert and oriented x3. Mood and affect normal. MUSCULOSKELETAL: Swelling below the left knee. Decreased tenderness and redness. INVESTIGATIONS: No blood work from today. ASSESSMENT: 1. Acute prepatellar bursitis in the left leg from patient working on the floor, with clinical improvement. 2. Obstructive sleep apnea. Uses a CPAP machine. 3. Amyotrophic lateral sclerosis which is stable. 4. Depression not otherwise specified. 5. Chronic constipation, idiopathic. 6. Mild cognitive impairment, probably from early-onset Alzheimer's dementia. PLAN: Patient is doing well. Soon will be able to be switched over to oral antibiotics and hopefully can be discharged tomorrow. Care was discussed with the patient. Patient may be getting a brace per Orthopedics. MMODL / IJN: [id number] /
[2017-12-21] MEDS: PIPERACILLIN-TAZOBACTAM 3.375 GM in DEXTROSE/WATER 1 50ML.BAG IVPB SCH ×3 (00:14→15:32)
[2017-12-21] MEDS: KETOROLAC 30 MG/ML 1 ML VIAL IVP SCH ×3 (00:14→11:04)
[2017-12-21] MEDS: PANTOPRAZOLE 40 MG TABLET PO SCH (07:48)
[2017-12-21] MEDS: DONEPEZIL 5 MG TAB PO SCH (07:48)
[2017-12-21] MEDS: POLYETHYLENE GLYCOL 3350 17 GM POWD.PACK PO SCH (07:48)
[2017-12-21] MEDS: buPROPion 100 MG TAB PO SCH (07:48)
[2017-12-21] MEDS: GABAPENTIN 300 MG CAP PO SCH ×2 (07:48→15:31)
[2017-12-21] MEDS: ENOXAPARIN 40 MG/0.4 ML SYRINGE SQ SCH (07:48)
[2017-12-21] MEDS: RILUZOLE 50 MG PO SCH (07:49)
[2017-12-21] MEDS: VANCOMYCIN 1,250 MG in SODIUM CHLORIDE 0.9% 250 ML IVPB SCH (07:52)
[2017-12-21] MEDS ORDERED: VANCOMYCIN TROUGH DUE 1 EACH MISC MISCELLANE ONE (08:00)
[2017-12-21 08:40] LABS: Anion Gap 6 mmol/L; Blood Urea Nitrogen 19 mg/dL (9-20); Calcium 9.3 mg/dL (8.4-10.2); Carbon Dioxide 30 mmol/L (22-30); Chloride 106 mmol/L (98-107); Glucose 84 mg/dL (74-99); Potassium 5.1 mmol/L (3.5-5.1); Sodium 142 mmol/L (137-145)
--- NOTE | 2017-12-21 10:38 | P.PN ---
Subjective Progress Note Date: 12/21/17 Principal diagnosis: Prepatellar bursitis left knee. This is a 67-year-old male who we are following regarding his left knee bursitis. He states that his symptoms have improved significantly since his admission. He has no new complaints or concerns today. Vital signs are stable. Objective - Vital Signs Vital signs: Vital Signs Temp 98.7 F 12/21/17 07:00 Pulse 77 12/21/17 07:00 Resp 18 12/21/17 07:00 BP 107/68 12/21/17 07:00 Pulse Ox 92 L 12/21/17 07:00 Intake & Output 12/20/17 12/21/17 12/21/17 18:59 06:59 18:59 Intake Total 320 900 Balance 320 900 Intake: Oral 320 900 Other: # Voids 2 1 - Exam This is a pleasant 67-year-old male in no acute distress. He is alert and oriented 3. Exam of the left knee reveals that there is no erythema or ecchymosis. No increased warmth. Significant fluctuance remains. He has full flexion of the knee in full extension. He has full active extension without difficulty. Neurovascular status to the lower extremity is intact. - Labs CBC & Chem 7: 12/19/17 13:48 12/21/17 07:48 Labs: Microbiology - Last 24 Hours (Table) 12/19/17 13:48 Blood Culture - Preliminary Blood No Growth after 24 hours Assessment and Plan (1) Bursitis of left knee Current Visit: Yes Status: Acute Code(s): M70.52 - OTHER BURSITIS OF KNEE, LEFT KNEE SNOMED Code(s): 5643986744186790 (2) Cellulitis of left leg Current Visit: Yes Status: Acute Code(s): L03.116 - CELLULITIS OF LEFT LOWER LIMB SNOMED Code(s): 797464712 Plan: The clinical findings are discussed with the patient. He is improving significantly since admission. He may be discharged from an orthopedic standpoint. I recommend neoprene sleeve for the knee for compression and knee immobilizer when up. He is to follow-up in our office in one week.
[2017-12-21 15:17] VITALS: BP 116/71; PULSE 76; RESP 20; TEMP 98
--- NOTE | 2017-12-22 08:36 | DS ---
DISCHARGE SUMMARY DATE OF ADMISSION: 12/19/2017. DATE OF DISCHARGE: 12/21/2017. FINAL DIAGNOSES: 1. Acute left prepatellar bursitis from working on the floor. 2. Obstructive sleep apnea uses CPAP machine. 3. Amyotrophic lateral sclerosis, which is stable. 4. Depression, not otherwise specified. 5. Chronic constipation, idiopathic. 6. Mild cognitive impairment probably from early-onset Alzheimer's dementia. HOSPITAL COURSE: This patient was working on his kitchen floor, presented with pain and swelling in the left knee, found to have prepatellar bursitis. It was managed conservatively by antibiotics. Seen by Orthopedics and the patient doing much better and cleared. CONSULTATION: Dr. Mosley from Orthopedics. PHYSICAL EXAMINATION: Temperature 98, pulse 72, respiration 20, blood pressure 106/71. RESPIRATORY: Effort normal. Lungs are clear. Pain swelling below the left knee and tenderness greatly improved. DISCHARGE MEDICATIONS: 1. Vitamin D3 5000 units p.o. daily. 2. Prilosec 20 mg with breakfast. 3. MiraLAX 17 grams p.o. b.i.d. 4. Ralusole 50 mg b.i.d. 5. Wellbutrin SR 200 mg p.o. b.i.d. 6. Neurontin 600 mg p.o. t.i.d. 7. Aricept 5 mg p.o. daily. 8. [place] 5 one tablet q.4 p.r.n. 9. Pamelor 75 mg q.h.s. 10.Naproxen 250 mg b.i.d., 10 tablets. 11.Senokot S 1 tablet p.o. daily. 12.Bactrim DS 1 tablet q.12h, 14 tablets. Instructions for knee care including knee immobilizer were done by Orthopedics. FOLLOWUP: Follow up with Dr. Hilliard in 1 week. Follow up with Dr. Mosley in [address] Hilliard. MMODL / IJN: [id number] /
== END 2017-12-21 15:45 | disposition home or self-care (01) ==
LOC: EC 13:07 → 4MS4W 15:46
PROVIDERS: ADMIT Hospitalist; ATTEND Hospitalist
DX: M70.42 Prepatellar bursitis, left knee (principal); M79.89 Other specified soft tissue disorders; L03.116 Cellulitis of left lower limb; G12.21 Amyotrophic lateral sclerosis; G47.33 Obstructive sleep apnea (adult) (pediatric); Z99.89 Dependence on other enabling machines and devices; F32.9 Major depressive disorder, single episode, unspecified; M19.042 Primary osteoarthritis, left hand; M19.041 Primary osteoarthritis, right hand; M17.12 Unilateral primary osteoarthritis, left knee; K59.09 Other constipation; G31.84 Mild cognitive impairment of uncertain or unknown etiology; Z79.899 Other long term (current) drug therapy; Z87.01 Personal history of pneumonia (recurrent); Z87.891 Personal history of nicotine dependence; Z80.42 Family history of malignant neoplasm of prostate
CPT/HCPCS: 96376 ×2; 96365 ×2; 96366 ×4; 96372 ×2; 96375; 96368 ×3; 99285; 36415; 80053; 80048; 83605; 85025; 80202; 85610; 85730; 86140; 87040; 73562; 93971; G0378 ×3; L1830; J3370 ×3; J1650 ×2; J1885 ×3; J2543 ×3

== ENCOUNTER → 2020-02-18 | Outpatient (CLI) | payer MEDICARE, OTHER ==
[2020-02-18 14:00] LABS: African American GFR (CKD) >90 (>60 ml/min/1.73 sqM); Blood Urea Nitrogen 20 mg/dL (9-20); Non-African American GFR(CKD) 85 (>60 ml/min/1.73 sqM)
--- NOTE | 2020-02-18 14:38 | CT ---
EXAMINATION TYPE: CT chest w con DATE OF EXAM: 02/18/2020 COMPARISON: 11/09/2016 HISTORY: 69-year-old male widened mediastinum TECHNIQUE: Contiguous axial scanning of the chest after the administration of 100 mL of Isovue 300. Coronal/sagittal reconstructions performed. CT DLP: 544mGycm. Automatic exposure control utilized for a dose reduction. FINDINGS: Heart normal size without pericardial effusion. Aortic root mildly aneurysmal at 4.2 cm, unchanged from 2017. Ascending aorta mildly aneurysmal at 4.0 cm, unchanged. Conventional vessel branching anatomy. Tortuous descending thoracic aorta. No evidence for aortic dissection or mediastinal hematoma. No thoracic lymphadenopathy by CT size criteria. Strandy scarring or atelectasis at the lung bases. Similar volume loss and slight asymmetric elevatio n left hemidiaphragm. Minimal bibasilar bronchiolectasis is unchanged. No consolidation or pleural ef fusion. Heterogeneous enhancement of the liver. Further correlation for any underlying nonspecific hepatocell ular disease is recommended. Bones: Chronic ununited fracture of the left coracoid process. Degenerative changes at the right shou lder. Stable anterior wedging deformity of T11 and T12 as compared to 2017. Moderate degenerative dis c disease throughout an accentuated lower thoracic kyphosis. IMPRESSION: 1. No evidence for aortic dissection. 2. 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 T ortuosity of the aortic arch and descending thoracic aorta appears to account for the widened mediast inum on radiograph. 3. Scattered strandy scarring and atelectasis at the lung bases. No acute pulmonary process. 4. Heterogeneous liver enhancement. Correlate with LFTs for any underlying nonspecific hepatocellular disease.
== END | disposition home or self-care (01) ==
LOC: RADCTMAIN 13:04
PROVIDERS: ATTEND Family Medicine
DX: I71.2 Thoracic aortic aneurysm, without rupture (principal); J98.11 Atelectasis; J98.59 Other diseases of mediastinum, not elsewhere classified
CPT/HCPCS: 82565; 84520; 71260; 36415; Q9967

== ENCOUNTER 2020-10-22 17:36 | Emergency (ER) | payer MEDICARE, OTHER ==
[2020-10-22 18:09] VITALS: TEMP 97.5
[2020-10-22] MEDS ORDERED: HYDROmorphone 1 MG/ML 1 ML SYRINGE IM STA ×2 (18:58→21:37)
[2020-10-22] MEDS ORDERED: ONDANSETRON ODT 4 MG TAB PO STA (18:58)
[2020-10-22 19:14] VITALS: RESP 16
--- NOTE | 2020-10-22 20:00 | CT ---
EXAMINATION TYPE: CT chest wo con DATE OF EXAM: 10/22/2020 COMPARISON: None HISTORY: fall, LAC on head CT DLP: 2071.4 with cspine, and chest mGycm Automated exposure control for dose reduction was used. Images obtained from the thoracic inlet to the diaphragm without contrast. There is some patchy atelectasis at the lung bases. Heart is enlarged. There is no pericardial effusi on. There is no pleural effusion or pneumothorax. Thoracic aorta is atheromatous. There is 4.3 cm ane urysm of the ascending aorta. There is minimal coronary artery calcification. There is anterior wedging of lower thoracic vertebra up to 30%. There is involvement of T12 T11 and T 9 and T8 T7 vertebra. Sternum is intact. The ribs appear intact. IMPRESSION: Cardiomegaly. Interstitial infiltrate and atelectasis at the lung bases. Thoracic aortic aneurysm. Pu lmonary abnormalities are new compared to old exam. Aortic aneurysm not significantly different than old exam.
--- NOTE | 2020-10-22 20:02 | XR ---
EXAMINATION TYPE: XR humerus RT DATE OF EXAM: 10/22/2020 COMPARISON: NONE HISTORY: Fall. Pain. TECHNIQUE: 4 views FINDINGS: Elbow joint is intact. There is some spurring on the humeral head. There is narrowing of th e subacromial joint space. I see no fracture nor dislocation. 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 No fracture seen.
--- NOTE | 2020-10-22 20:15 | CT ---
EXAMINATION TYPE: CT brain sarita wo con DATE OF EXAM: 10/22/2020 COMPARISON: 11/09/2016 HISTORY: fall LAC on top of head CT DLP: 2071.4 with brian stein mGycm Automated exposure control for dose reduction was used. There is mild cerebral atrophy. There is no mass effect nor midline shift. There is no sign of intrac ranial hemorrhage. Calvarium is intact. Skull base is intact. There is normal aeration of the mastoid sinuses. The cervical vertebra have normal alignment. There is mild narrowing of disc spaces through out the cervical spine. There is mild spurring of the endplates. Facet joints are intact. There is mi nimal spurring of the facet joints. IMPRESSION: Mild atrophy. No acute intracranial abnormality. Mild multilevel cervical spondylotic changes. No fracture. No change compared to old exam.
[2020-10-22] MEDS ORDERED: ACET/COD 300 MG/30 MG STARTER PACK 6 TAB BTL PO STA (21:37)
--- NOTE | 2020-10-22 21:37 | ED ---
Fall HPI - General Chief Complaint: Fall Stated Complaint: FALL Source: patient Mode of arrival: ambulatory - History of Present Illness Initial Comments: 70-year-old male resents emergency department after he took a fall. Patient was working outside when he slipped off of a step and fell backward. He hit his head on the concrete. He denies losing consciousness. Does not take any blood thinners. He was having some right-sided chest wall pain. reports that she was not at home to witness the event. The patient was able to continue working in his yard. He then took a shower. He called his afterwards and was stating that he was in such significant pain to go to the ER. He denies any shortness of breath. No nausea or vomiting. Denies abdominal pain. No pain in his lower extremities. No thoracic or lumbar back pain. No other alleviating, precipitating or modifying factors - Related Data Home Medications Medication Instructions Recorded Confirmed Cholecalciferol [Vitamin D3 (25 5,000 unit PO DAILY 06/11/14 12/19/17 Mcg = 1000 Iu)] Omeprazole [PriLOSEC] 20 mg PO AC-BRKFST 06/11/14 12/19/17 Riluzole 50 mg PO BID 06/11/14 12/19/17 buPROPion HCL [Wellbutrin SR] 200 mg PO BID 06/11/14 12/19/17 polyethylene glycoL 3350 [Miralax] 17 gm PO BID 06/11/14 12/19/17 Gabapentin [Neurontin] 600 mg PO TID 03/03/16 12/19/17 Donepezil HCl [Aricept] 5 mg PO DAILY 12/19/17 12/19/17 Hydrocodone/Acetaminophen [[place] 1 tab PO Q4HR PRN 12/19/17 12/19/17 5-325] Nortriptyline HCl [Pamelor] 75 mg PO HS 12/19/17 12/19/17 Previous Rx's Medication Instructions Recorded Naproxen 250 mg PO BID #10 tablet 12/21/17 Sennosides-Docusate Sodium 1 tab PO DAILY #1 tablet 12/21/17 [Senokot-S] Sulfamethox-Tmp 800-160Mg [Bactrim 1 tab PO Q12HR #14 tab 12/21/17 DS 800-160 mg] HYDROcodone/APAP 7.5-325MG [[place] 1 tab PO Q6HR PRN 3 Days #12 tab 10/22/20 7.5-325] Allergies Allergy/AdvReac Type Severity Reaction Status Date / Time No Known Allergies Allergy Verified 10/22/20 18:08 Review of Systems ROS Statement: Those systems with pertinent positive or pertinent negative responses have been documented in the HPI. ROS Other: All systems not noted in ROS Statement are negative. Past Medical History Past Medical History: Neurologic Disorder, Pneumonia, Sleep Apnea/CPAP/BIPAP Additional Past Medical History / Comment(s): ALS History of Any Multi-Drug Resistant Organisms: None Reported Past Surgical History: Orthopedic Surgery Additional Past Surgical History / Comment(s): TOE SURGERY RIGHT. intestinal growth removed/colonoscopy. traumatic injury fell off horse, has lillie rt leg. Past Anesthesia/Blood Transfusion Reactions: No Reported Reaction Past Psychological History: Depression Smoking Status: Former smoker Past Alcohol Use History: Occasional Past Drug Use History: None Reported - Past Family History Brother(s) Family Medical History: Prostate Disorder Additional Family Medical History / Comment(s): prostate cancer General Exam Limitations: no limitations General appearance: alert, in no apparent distress Head exam: Present: normocephalic, other (3.0 cm lac right parietal region) Eye exam: Present: normal appearance, PERRL, EOMI. Absent: scleral icterus, conjunctival injection, periorbital swelling ENT exam: Present: normal exam, mucous membranes moist Neck exam: Present: normal inspection. Absent: tenderness, meningismus, lymphadenopathy Respiratory exam: Present: normal lung sounds bilaterally, chest wall tenderness (right lateral). Absent: respiratory distress, wheezes, rales, rhonchi, stridor Cardiovascular Exam: Present: regular rate, normal rhythm, normal heart sounds. Absent: systolic murmur, diastolic murmur, rubs, gallop, clicks GI/Abdominal exam: Present: soft, normal bowel sounds. Absent: distended, tenderness, guarding, rebound, rigid Extremities exam: Present: normal inspection, full ROM, normal capillary refill. Absent: tenderness, pedal edema, joint swelling, calf tenderness Back exam: Present: normal inspection Neurological exam: Present: alert, oriented X3, CN II-XII intact Psychiatric exam: Present: normal affect, normal mood Skin exam: Present: warm, dry, intact, normal color. Absent: rash Course Vital Signs 10/22/20 10/22/20 10/22/20 18:05 19:08 21:51 Temperature 97.5 F L Pulse Rate 80 77 Respiratory 18 16 16 Rate Blood Pressure 118/75 107/67 O2 Sat by Pulse 98 98 Oximetry Procedures - Laceration Laceration #1 Consent Obtained: verbal consent Indication: laceration Site: scalp Size (cm): 3 Description: linear Depth: simple, single layer Number of Sutures: 2 (sheila) Patient Tolerated Procedure: well, no complications Medical Decision Making - Medical Decision Making Upon arrival patient was placed into room 12. A thorough history and physical exam was performed. Patient is given 1 mg of Dilaudid IM and sent over for a chest CT, head and cervical spine CT as well as a humeral x-ray. Chest CT is re viewed by myself and does demonstrate a rib fracture. I do speak to Dr. Koehler about this. No pulmonary contusion or pneumothorax. Humeral x-ray demonstrates arthritis in the shoulder joint with no acute fracture. CT of the patient's head and cervical spine demonstrates no acute intracranial abnormality. Results are discussed the patient. He is given additional pain medication. He does have an incentive inspirometer at home. Patient will be given a Tylenol 3 starter pack for pain control tonight. Additional prescription for [place] sent to the pharmacy tomorrow. He is instructed on p rescription drug use. Patient will old off on his nortriptyline and gabapentin tonight. Patient's scalp laceration required 2 sheila for repair. He is instructed have these removed in 5-7 days. Return to the emergency room for any new or worsening symptoms. he was discharged home in stable condition Disposition Clinical Impression: Fall, Concussion, Scalp laceration, Right rib fracture, Pain in humerus Disposition: HOME SELF-CARE Condition: Stable Instructions (If sedation given, give patient instructions): Rib Fracture (ED) Additional Instructions: Please have your sheila removed in 5-7 days. Use the incentive spirometer at home at least once hourly. Take the pain medication as directed. Return to the emergency room for any new or worsening symptoms Prescriptions: HYDROcodone/APAP 7.5-325MG [[place] 7.5-325] 1 tab PO Q6HR PRN 3 Days #12 tab PRN Reason: Pain Is patient prescribed a controlled substance at d/c from ED?: Yes When asked, does pt state using other controlled substances?: No If prescribed controlled substance>3 days was MAPS reviewed?: Prescribed <3 Days If opioid is for acute pain is fill amount 7 days or less?: Yes If Rx opioid, was Start Talking consent form obtained?: Yes Referrals: Brice Hilliard MD [Primary Care Provider] - 1-2 days Time of Disposition: 21:37
[2020-10-22 21:52] VITALS: BP 107/67; PULSE 77
== END 2020-10-22 21:52 | disposition home or self-care (01) ==
LOC: EC 17:36
DX: S06.0X9A Concussion with loss of consciousness of unspecified duration, initial encounter (principal); S22.31XA Fracture of one rib, right side, initial encounter for closed fracture; S01.01XA Laceration without foreign body of scalp, initial encounter; M79.621 Pain in right upper arm; F32.9 Major depressive disorder, single episode, unspecified; Z87.891 Personal history of nicotine dependence; Z79.1 Long term (current) use of non-steroidal anti-inflammatories (NSAID); Z79.899 Other long term (current) drug therapy; W10.9XXA Fall (on) (from) unspecified stairs and steps, initial encounter
CPT/HCPCS: 73060; 72125; 70450; 71250; 96372 ×2; 99284; 12002; J1170

== ENCOUNTER → 2022-03-17 | Outpatient (CLI) | payer MEDICARE, OTHER | END | disposition home or self-care (01) | LOC: LABWHC1 10:54 | PROVIDERS: ATTEND Physician Assistant Medical | DX: E22.0 Acromegaly and pituitary gigantism (principal) | CPT/HCPCS: 36415; 84305 ==

== ENCOUNTER → 2023-01-19 | Outpatient (CLI) | payer MEDICARE, OTHER ==
[2023-01-19 16:05] LABS: % Iron Saturation 18.87 (15.00-50.00)
[2023-01-19 16:20] LABS: Basophils # (A) 0.09 X 10*3/uL (0.00-0.10); Basophils % (A) 1.3 %; Eosinophils # (A) 0.52 X 10*3/uL (0.04-0.35); Eosinophils % (A) 7.3 %; HGB 13.1 d/dL (13.0-17.0); Lymphocytes # (A) 1.67 X 10*3/uL (0.90-5.00); Lymphocytes % (A) 23.3 %; MCH 30.3 pg (27.0-32.0); MCV 94.9 FL (80.0-97.0); Mean Platelet Volume 9.9 FL (9.5-12.2); Monocytes # (A) 0.75 X 10*3/uL (0.20-1.00); Monocytes % (A) 10.5 %; NRBC Per 100 WBC 0 X 10*3/uL (0.00-0.01); Neutrophils % (A) 57.2 %; Platelet Count 308 X 10*3/uL (140-440); RBC 4.32 X 10*6/uL (4.40-5.60); RDW 13.2 % (11.5-14.5); WBC 7.16 X 10*3/uL (4.50-10.00)
== END | disposition home or self-care (01) ==
LOC: LABWHC1 10:48
PROVIDERS: ATTEND Family Medicine
DX: D50.9 Iron deficiency anemia, unspecified (principal)
CPT/HCPCS: 36415; 82728; 83540; 83550; 85025

== ENCOUNTER → 2024-05-27 | Outpatient (CLI) | payer MEDICARE, OTHER ==
[2024-05-27 15:19] LABS: African American GFR (CKD) 69 (>60 ml/min/1.73 sqM); Blood Urea Nitrogen 23 mg/dL (9-20); Non-African American GFR(CKD) 60 (>60 ml/min/1.73 sqM)
--- NOTE | 2024-05-27 19:38 | CT ---
EXAMINATION TYPE: CT ChestAbdPelvis w con DATE OF EXAM: 05/27/2024 4:30 PM COMPARISON: 10/22/2010. CLINICAL INDICATION: Male, 74 years old with history of J98.59 DISEASE MEDIASTINUM R10.9 ABD PAIN; PH H, chest and abdominal pain Technique: CT ChestAbdPelvis w con; Multiple axial images were obtained. Two-dimensional coronal and sagittal reconstructions were obtained. Contrast used:100ml mL of Isovue 300 with IV Contrast, (None if empty) Oral contrast used: with Oral Contrast CT DLP: 786.2 mGycm, Automated exposure control for dose reduction was used. Findings: CHEST: LUNGS/ PLEURA: No focal consolidation, pneumothorax or pleural effusion. Elevated left diaphragm. AIRWAY: Patent and unremarkable. HEART: Size within normal limits. No significant coronary artery calcifications. MEDIASTINUM: No gross evidence of adenopathy. VASCULATURE: No aortic aneurysm. Ectasia of ascending thoracic aorta up to 40 mm. MUSCULOSKELETAL: No acute osseous abnormalities. SOFT TISSUES/LYMPH NODES: Unremarkable. LOWER NECK: No significant findings. ABDOMEN: ABDOMEN LIVER: Diffusely hypoattenuating parenchyma. GALLBLADDER AND BILE DUCTS: Unremarkable. PANCREAS: Unremarkable. SPLEEN: Unremarkable. ADRENAL GLANDS: Unremarkable. KIDNEYS AND URETERS: The right kidney is in abnormal position within the pelvis slightly inferior and rotated. No evidence for hydronephrosis. 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 No ev idence of hydronephrosis or renal calculus. The ureters are unremarkable. PELVIS BLADDER: Unremarkable REPRODUCTIVE: Unremarkable. ABDOMEN & PELVIS STOMACH AND BOWEL: No evidence of bowel obstruction. PERITONEUM/RETROPERITONEUM: No evidence of pneumoperitoneum or free fluid. VASCULATURE: No evidence of aortic aneurysm. MUSCULOSKELETAL: No acute osseous abnormalities, right hip fixation hardware appears intact. Moderate degeneration changes of the hips with osteophyte formation and joint space narrowing. Moderate degen eration changes of the spine with osteophyte formation facet arthropathy and degeneration changes. We dging at T11-T12 noted. Scattered vacuum disc phenomenon. LYMPH NODES: No gross evidence for lymphadenopathy. SOFT TISSUE/ABDOMINAL WALL: Unremarkable IMPRESSION: 1. No evidence for acute thoracic or abdominal process. 2. Mild ectasia of ascending thoracic aorta up to 40 mm. 3. Hepatic steatosis. 4. Severe degeneration changes of the spine. 5. Fixation hardware in the right hip appears intact. [facility]: [id number], 05/27/2024 7:36 PM
== END | disposition home or self-care (01) ==
LOC: RADCTMAIN 14:13
PROVIDERS: ATTEND Family Medicine
DX: J98.59 Other diseases of mediastinum, not elsewhere classified (principal); K76.0 Fatty (change of) liver, not elsewhere classified; I77.810 Thoracic aortic ectasia; M47.819 Spondylosis without myelopathy or radiculopathy, site unspecified
CPT/HCPCS: 82565; 84520; 71260; 74177; 36415; Q9967

== ENCOUNTER → 2024-06-23 | Outpatient (CLI) | payer MEDICARE, OTHER ==
--- NOTE | 2024-06-23 16:22 | FL ---
EXAMINATION TYPE: FL barium swallow DATE OF EXAM: 06/23/2024 3:38 PM COMPARISON: None CLINICAL INDICATION: Male, 74 years old with history of K21.9 GASTRO-ESOPHAGEAL REFLUX DISEASE WITHOU T ESO, , Total Fluoroscopy Time: 2 minutes 6 seconds Total dose: 100 mGycm2. 45 images obtained. FINDINGS: There is superficial penetration on swallows. Otherwise, swallowing mechanism is normal and hypophary ngeal anatomy is preserved. The cervical and thoracic portions have a normal course and caliber. Mild tertiary peristaltic waves. Slightly slowed progression of contrast down the thoracic esophagus. The mucosa is normal and no persistent filling defect is encountered. There is a trace sliding hiatal hernia on Valsalva maneuver. Gastroesophageal reflux not seen during the course of the exam. IMPRESSION: 1. No esophageal mucosal irregularity/erosions or stricture identified. 2. Trace sliding hiatal hernia on Valsalva maneuver. No gastroesophageal reflux seen during the cours e of the exam. [facility], , 06/23/2024 4:20 PM
== END | disposition home or self-care (01) ==
LOC: RADFLMAIN 14:45
PROVIDERS: ATTEND Family Medicine
DX: K21.9 Gastro-esophageal reflux disease without esophagitis (principal); K44.9 Diaphragmatic hernia without obstruction or gangrene
CPT/HCPCS: 74220

== ENCOUNTER → 2024-07-23 | Outpatient (CLI) | payer MEDICARE, OTHER ==
--- NOTE | 2024-07-23 08:44 | MR ---
EXAMINATION TYPE: MR pancreas wo/w con DATE OF EXAM: 07/23/2024 8:25 AM INDICATION: Patient age:Male; 74 years old; Reason for study: R10.9 unspecified abdominal pain; PHH. COMPARISON: CT chest abdomen and pelvis 05/27/2024, 11/09/2016 TECHNIQUE: Multiplanar multi-sequence imaging was performed without and with IV contrast. The patie nt was given 7 ccs of Gadobutrol intravenously and dynamic imaging was performed. Post IV contrast del cid btraction images were also submitted for review. FINDINGS: LOWER CHEST: Elevation of the left hemidiaphragm. Prominent heart size. ABDOMEN Liver: No focal lesion. No dropout of signal on out of phase imaging to suggest hepatic steatosis. On cirrhotic morphology. Gallbladder and Bile ducts: Multiple gallstones identified within the underdistended gallbladder. No wall thickening or stranding of inflammatory changes identified. No biliary ductal dilatation. Pancreas: No pancreatic ductal dilatation. No suspicious mass or fluid collections no surrounding inf lammatory changes. Spleen: Unremarkable. Adrenal glands: Unremarkable. Kidneys: No hydronephrosis. Left kidney appears unremarkable in appropriate position. Right-sided pel tomas kidney with malrotation. Couple of thin wall nonenhancing cysts identified with largest measuring up to 1 cm. No follow up recommended. Stomach and Bowel: Unremarkable as visualized. Artifact is identified within the hepatic flexure. Peritoneum: No evidence of pneumoperitoneum, free fluid, or adenopathy. Vasculature: No aortic aneurysm. Tortuosity of the abdominal aorta. Abdominal wall: Unremarkable. Musculoskeletal: S-shaped scoliotic curvature of the thoracolumbar spine. Multilevel degenerative dis c disease.. IMPRESSION: 1. No evidence of abdominal mass. No MRI evidence for pancreatic abnormality. 2. Cholelithiasis. [facility], , 07/23/2024 8:42 AM
== END | disposition home or self-care (01) ==
LOC: RADMRIMAIN 07:31
PROVIDERS: ATTEND Internal Medicine Gastroenterology
DX: K80.20 Calculus of gallbladder without cholecystitis without obstruction (principal)
CPT/HCPCS: 74183; A9585